=== PATIENT | male | born 1980 | race Hispanic/Latino ===

== ENCOUNTER 2022-04-20 08:04 | Outpatient (CLI) | payer OTHER | END 2022-04-20 08:05 | disposition home or self-care (01) | LOC: CSHCT 08:04 | PROVIDERS: ATTEND Family Medicine Sports Medicine | DX: Z00.00 Encounter for general adult medical examination without abnormal findings (principal) | CPT/HCPCS: 75571 ==

== ENCOUNTER 2023-03-10 08:32 | Outpatient (CLI) | payer BC | END 2023-03-10 08:33 | disposition home or self-care (01) | LOC: CSHULT 08:32 | PROVIDERS: ATTEND Internal Medicine Gastroenterology | DX: K62.5 Hemorrhage of anus and rectum (principal); R10.9 Unspecified abdominal pain; Z86.010 Personal history of colon polyps; K64.8 Other hemorrhoids; N28.1 Cyst of kidney, acquired | CPT/HCPCS: 76700 ==